=== PATIENT | male | born 1985 | race Caucasian/White ===

== ENCOUNTER 2017-02-19 15:32 | Emergency (ER) | payer OTHER ==
[2017-02-19 15:46] VITALS: BP 133/69
--- NOTE | 2017-02-19 15:54 | UC ---
Cardiac HPI - HPI Summary HPI Summary: Pt presents to with 4-5 days left anterior chest wall pain. Pt states started after carrying a large, mild heavy box. Pt states pain worse with movement, palpation. No sob, nausea, diaphoresis. no abd pain. No n/v/d. No radiation. no h/o htn, cva, cad, HLD. No tobacco, no family CAD hx of similar. No leg cramping. no family hx clotting d/o. Pt states came today because "it is on the left side" No analgesia taken. No limited activity Pt's medications reviewed this visit - History of Current Complaint Chief Complaint: UCChestPain Stated Complaint: CHEST PAIN Time Seen by Provider: 02/19/17 15:42 Hx Obtained From: Patient Onset/Duration: Gradual Onset, Lasting Hours, Lasting Days Initial Severity: Mild Current Severity: Mild Chest Pain Location: Left Anterior Character: Dull/Aching Aggravating Factor(s): Movement, Other - palpation Alleviating Factor(s): Rest Associated Signs & Symptoms: Positive: Negative - Allergy/Home Medications Allergies/Adverse Reactions: Allergies Allergy/AdvReac Type Severity Reaction Status Date / Time Penicillins Allergy UNK Verified 02/19/17 15:47 Home Medications: Home Medications Omeprazole CAP* [Prilosec CAP* 20 MG] 1 tab PO DAILY 02/19/17 [History Confirmed 02/19/17] PMH/Surg Hx/FS Hx/Imm Hx Previously Healthy: Yes GI/ History: Gastroesophageal Reflux, Other - GERD Other GI/ History: GERD - Surgical History Surgical History: None - Family History Known Family History: Positive: None Negative: Cardiac Disease, Hypertension, Diabetes, Blood Disorder - Social History Occupation: Employed Full-time Alcohol Use: Occasionally Substance Use Type: None Smoking Status (MU): Never Smoked Tobacco Review of Systems Constitutional: Negative Skin: Negative Respiratory: Negative Cardiovascular: Chest Pain - left anterior chest wall with palp, movement All Other Systems Reviewed And Are Negative: Yes Physical Exam Triage Information Reviewed: Yes Appearance: Well-Appearing, No Pain Distress, Well-Nourished Vital Signs: Initial Vital Signs Temp 97.3 F 02/19/17 15:42 Pulse 64 02/19/17 15:42 Resp 15 02/19/17 15:42 BP 133/69 02/19/17 15:42 Pulse Ox 100 02/19/17 15:42 Vital Signs Reviewed: Yes Eye Exam: Normal Eyes: Positive: Conjunctiva Clear ENT Exam: Normal ENT: Positive: Normal ENT inspection, Pharynx normal, TMs normal Dental Exam: Normal - ` Neck exam: Normal Neck: Positive: Supple, Nontender, No Lymphadenopathy Respiratory Exam: Normal Respiratory: Positive: Chest non-tender, Lungs clear, Normal breath sounds, No respiratory distress, No accessory muscle use Cardiovascular Exam: Normal Cardiovascular: Positive: RRR, No Murmur, Pulses Normal, Other: - no bruits b/l + mild TTP left anterior chest wall Pain increases with ROM cspine and external posterior rotation of shoulders Abdominal Exam: Normal Abdomen Description: Positive: Nontender, No Organomegaly, Soft Bowel Sounds: Positive: Present Musculoskeletal Exam: Normal Musculoskeletal: Positive: Strength Intact, Other: - see chest Neurological: Positive: Alert Psychological Exam: Normal Skin Exam: Normal Diagnostics - EKG Cardiac Rate: NL Cardiac Rhythm: Sinus: Normal - 55 Ectopy: None ST Segment: Normal - Assessment/Plan Course Of Treatment: pt with left anterior wall muscle pain. mild reproduction with direct palp and ROM exercises. Pt with EKG without concerning findings for STEMI. d/w pt at [facility]. Will discharge home. NSAIDs. Pt comfortable and in agreement with plan. return precautions discussed - Clinical Impression Provider Diagnoses: chest wall pain Discharge - Discharge Plan Condition: Stable Disposition: HOME Patient Education Materials: Chest Wall Pain (ED) Referrals: No Primary Care Phys,NOPCP [Primary Care Provider] - Additional Instructions: - stay well hydrated. Drink plenty of non-alcoholic, non-caffinated beverages - okay to alternate ibuprofen (Advil, Motrin) and tylenol every 3hours for pain. Take with food. Do NOT Take for more than 4-5 days - Okay to apply heat to your chest wall. Once your muscles are warm, slow gentle stretching exercises - Contact your doctor to schedule a follow-up appointment. If you pain increases , moves, you feel short of breath, nausea, sweaty or you have any other questions or concerns it is recommended you call 911 or go to the emergency department
== END 2017-02-19 16:00 | disposition home or self-care (01) ==
LOC: UCEAST 15:32
DX: R07.89 Other chest pain (principal); Z72.89 Other problems related to lifestyle
CPT/HCPCS: 93005; 99201; G0463